=== PATIENT | female | born 1955 | race Caucasian/White ===

== ENCOUNTER 2017-01-20 13:45 | Emergency (ER) | payer OTHER ==
[~2017-01-20] VITALS: Ht 162.6 cm; Wt 59.1 kg
[~2017-01-20 13:45] MED LIST: Flagyl PO; HYDROCODON-ACE1 EAC2 PO; LORCET PLUS 7.1 EACH PO; NORCO 7.5/321 TABLET PO; PRILOSEC20 MG PO; PROVENTIL,2.5 MG/3 M IH; VICODIN ES 7.51 EAC1 PO; [UNRECOGNIZED DRUG - MIXTURE] PO; [UNRECOGNIZED DRUG - OTHER] PO
[2017-01-20 14:31] LABS: HEMATOCRIT 37.3 % (36.0-46.0); MCH 27.4 PG (29.0-34.0); MCHC 31.9 G/DL (30.0-36.0); MCV 85.9 FL (83-99); MEAN PLAT.VOLUME 9.4 uM^3 (9.5-12.4); PLATELET COUNT 333 K/uL (156-360); RBC DIS.WIDTH-CV 18.7 % (11.8-14.6); RBC DIS.WIDTH-SD 59.2 % (39-53); RED BLOOD COUNT 4.34 M/uL (3.80-5.20); WHITE BLOOD COUNT 6.3 K/uL (4.1-10.2)
[2017-01-20 14:41] LABS: CHLORIDE 104 mEq/L (99-109); POTASSIUM 3.8 mEq/L (3.7-5.4); SODIUM 140 mEq/L (136-147)
[2017-01-20 14:43] LABS: GLUCOSE 93 mg/dL (70-99)
[2017-01-20 14:44] LABS: ANION GAP 15 MEQ/L (2-14)
[2017-01-20 14:45] LABS: TOTAL BILIRUBIN 0.1 mg/dL (0.0-1.0)
[2017-01-20 14:47] LABS: ALKALINE PHOSPHATASE 43 IU/L (3-129); GFR ESTIMATE (CALCULATED) > 59 mL/min/
[2017-01-20 14:48] LABS: UREA NITROGEN (BUN) 13 mg/dL (9-23)
[2017-01-20 15:02] VITALS: BP 150/87
== END 2017-01-20 15:02 | disposition home or self-care (01) ==
LOC: EME 13:45
DX: K62.3 Rectal prolapse (principal); K21.9 Gastro-esophageal reflux disease without esophagitis; J44.9 Chronic obstructive pulmonary disease, unspecified; I10 Essential (primary) hypertension; F03.90 Unspecified dementia, unspecified severity, without behavioral disturbance, psychotic disturbance, mood disturbance, and anxiety; F41.9 Anxiety disorder, unspecified; F32.9 Major depressive disorder, single episode, unspecified; Z87.19 Personal history of other diseases of the digestive system; Z87.442 Personal history of urinary calculi; Z88.0 Allergy status to penicillin; Z88.2 Allergy status to sulfonamides; F17.200 Nicotine dependence, unspecified, uncomplicated
CPT/HCPCS: 80053; 81003; 85027; 99281; 99283